=== PATIENT | female | born 1975 | race Caucasian/White ===

== ENCOUNTER → 2016-10-02 | Outpatient (CLI) | payer BC ==
[~2016-10-02] MED LIST: AQUAPHOR TOP; CHOL1TAB42 PO; CLC100X PO; LORA0.5T12 PO; METHPOW PO; NITROBID TOP; OXYC-57 PO; POLY335040 PO; SOFTSOL OPB; TYLOTC500 PO; [UNRECOGNIZED DRUG - CODE] OPB
[2016-10-02 10:01] LABS: ESTIMATED AVERAGE GLUCOSE 111 mg/dl; HA1C FLAG Normal (Normal)
== END | disposition home or self-care (01) ==
LOC: C.LAB1850 07:25
PROVIDERS: ATTEND Internal Medicine
DX: R73.09 Other abnormal glucose (principal)

== ENCOUNTER → 2016-10-11 | Outpatient (CLI) | payer BC ==
--- NOTE | 2016-10-12 13:16 | MAMMOGRAPHY REPORT ---
BILATERAL DIGITAL SCREENING MAMMOGRAM TOMOSYNTHESIS WITH CAD: 10/11/2016 TECHNIQUE: Breast tomosynthesis in addition to standard 2D mammography was performed. Current study was also evaluated with a Computer Aided Detection (CAD) system. COMPARISON: Comparison is made to exams dated: 08/16/2015 mammogram, 08/13/2014 mammogram - [facility], and 12/08/2008. BREAST COMPOSITION: The tissue of both breasts is heterogeneously dense, which may obscure small ma sses. FINDINGS: No suspicious masses, calcifications, or areas of architectural distortion are noted in e ither breast. There has been no significant interval change compared to prior exams. IMPRESSION: ACR BI-RADS CATEGORY 1: NEGATIVE There is no mammographic evidence of malignancy. A 1 year screening mammogram is recommended. The p atient will receive written notification of the results. Approximately 10% of breast cancers are not detected with mammography. A negative mammographic repor t should not delay biopsy if a clinically suggestive mass is present. Azul Estrada M.D. ah/:10/11/2016 16:06:57 Motor Vehicle Examiner: Rosa FRANK(R)(M), [facility] letter sent: Normal 1/2 BI-RADS Code: ACR BI-RADS Category 1: Negative
== END | disposition home or self-care (01) ==
LOC: C.MAMM 13:53
PROVIDERS: ATTEND Internal Medicine
DX: Z12.31 Encounter for screening mammogram for malignant neoplasm of breast (principal)

== ENCOUNTER → 2016-10-20 | Outpatient (CLI) | payer BC ==
[2016-10-20 09:26] LABS: BASO % 0.3 %; BASO ABS # 0.03 K/uL (0-0.2); COMPLETE YES; EOS % 2.8 %; HEMATOCRIT 40.4 % (37-47); IG% 0.3 %; LYMPH % 30.3 %; LYMPH ABS # 2.66 K/uL (1.2-3.4); MEAN CELL VOLUME 81.9 fL (80-100); MEAN CORPUSCULAR HEMOGLOBIN 26.6 pg (25-34); MEAN CORPUSCULAR HGB CONC 32.4 g/dl (32-36); MEAN PLATELET VOLUME 10.4 fL (7.4-10.4); NEUT % 58.3 %; PLATELET COUNT 319 K/uL (130-400); RED BLOOD COUNT 4.93 M/uL (4.2-5.4); WHITE BLOOD COUNT 8.78 K/uL (4.8-10.8)
[2016-10-20 09:45] LABS: URINE APPEARANCE CLEAR (CLEAR); URINE BILIRUBIN NEG (NEG); URINE COLOR YELLOW; URINE NITRITE NEG (NEG); URINE PH 5.5 (4.5-7.5); UROBILINOGEN NEG (NEG); ZZUR CULT IF INDIC CLEAN CATCH NO
[2016-10-20 09:46] LABS: MANUAL MICROSCOPIC REQUIRED? NO; REVIEW REQ? NO
[2016-10-20 09:53] LABS: ALT/SGPT 37 U/L (12-78); AST/SGOT 21 U/L (15-37); BLOOD UREA NITROGEN 11 mg/dl (7-18); BUN/CREATININE RATIO 14.1 (10-20); CALCIUM 8.9 mg/dl (8.5-10.1); CARBON DIOXIDE 29 mmol/L (21-32); CHLORIDE 105 mmol/L (98-107); CREATININE 0.81 mg/dl (0.60-1.20); GLUCOSE 104 mg/dl (70-99); POTASSIUM 4.2 mmol/L (3.5-5.1); SODIUM 140 mmol/L (136-145)
[2016-10-20 10:04] LABS: ALKALINE PHOSPHATASE 96 U/L (45-117); CHOLESTEROL 156 mg/dl (0-200); HDL CHOLESTEROL 39 mg/dl; LDL CHOLESTEROL CALCULATED 92 mg/dl; TRIGLYCERIDES 124 mg/dl (0-150); VERY LOW DENSITY LIPOPROT CALC 25 mg/dl
== END | disposition home or self-care (01) ==
LOC: C.LAB1850 07:04
PROVIDERS: ATTEND Internal Medicine
DX: E66.01 Morbid (severe) obesity due to excess calories (principal); R53.83 Other fatigue; Z13.6 Encounter for screening for cardiovascular disorders; R73.01 Impaired fasting glucose

== ENCOUNTER → 2016-12-11 | Outpatient (CLI) | payer BC | END | disposition home or self-care (01) | LOC: C.PAPS 08:54 | PROVIDERS: ATTEND Physician Assistant | DX: N92.0 Excessive and frequent menstruation with regular cycle (principal); Z01.419 Encounter for gynecological examination (general) (routine) without abnormal findings ==

== ENCOUNTER → 2016-12-22 | Outpatient (CLI) | payer BC | END | disposition home or self-care (01) | LOC: C.LAB1850 15:48 | PROVIDERS: ATTEND Internal Medicine | DX: E55.9 Vitamin D deficiency, unspecified (principal) ==

== ENCOUNTER → 2017-01-29 | Outpatient (CLI) | payer BC | END | disposition home or self-care (01) | LOC: C.PATHSPEC 10:43 | PROVIDERS: ATTEND Obstetrics & Gynecology | DX: N93.9 Abnormal uterine and vaginal bleeding, unspecified (principal) ==

== ENCOUNTER 2017-03-23 09:45 | Observation (INO) | payer BC ==
[2017-03-09 14:31] VITALS: BMI 46.0
--- NOTE | 2017-03-09 14:57 | PAT Medication Instructions ---
Service Date Mar 09, 2017. Current Home Medication List Cholecalciferol (Vitamin D), 1 TAB PO HS Docusate Sodium (Colace), 100 MG PO BID PRN for Constipation Lorazepam (Lorazepam), 0.5 MG PO DAILY PRN for Anxiety/Insomnia Polyethylene (Miralax Powder Packet), 17 GM PO PRN PRN for Constipation Soft Lens Products (Saline Sensitive Eyes), 1 DROP OPB Medication Instructions For Your Scheduled Surgery - Hold the following medications the morning of surgery: Polyethylene (Miralax Powder Packet), 17 GM PO PRN PRN for Constipation Docusate Sodium (Colace), 100 MG PO BID PRN for Constipation - Take the following medications the morning of surgery with a sip of water OTHERWISE NOTHING TO EAT OR DRINK AFTER MIDNIGHT: Soft Lens Products (Saline Sensitive Eyes), 1 DROP OPB Lorazepam (Lorazepam), 0.5 MG PO DAILY PRN for Anxiety/Insomnia - Take the following medications as scheduled the night before surgery: Cholecalciferol (Vitamin D), 1 TAB PO HS Polyethylene (Miralax Powder Packet), 17 GM PO PRN PRN for Constipation Docusate Sodium (Colace), 100 MG PO BID PRN for Constipation Soft Lens Products (Saline Sensitive Eyes), 1 DROP OPB Lorazepam (Lorazepam), 0.5 MG PO DAILY PRN for Anxiety/Insomnia If you have any questions please call us at [phone] or [phone] or [phone]
[2017-03-09 15:47] LABS: BASO % 0.2 %; BASO ABS # 0.02 K/uL (0-0.2); COMPLETE YES; EOS % 3.4 %; HEMATOCRIT 39.2 % (37-47); IG% 0.4 %; LYMPH % 27.7 %; LYMPH ABS # 2.82 K/uL (1.2-3.4); MEAN CELL VOLUME 82.2 fL (80-100); MEAN CORPUSCULAR HEMOGLOBIN 26.8 pg (25-34); MEAN CORPUSCULAR HGB CONC 32.7 g/dl (32-36); MONO % 9.6 %; NEUT % 58.7 %; PLATELET COUNT 295 K/uL (130-400); RED BLOOD COUNT 4.77 M/uL (4.2-5.4); WHITE BLOOD COUNT 10.17 K/uL (4.8-10.8)
[2017-03-09 15:50] LABS: BUN/CREATININE RATIO 18.1 (10-20); CALCIUM 9.5 mg/dl (8.5-10.1); CREATININE 0.7 mg/dl (0.60-1.20); POTASSIUM 3.8 mmol/L (3.5-5.1)
[~2017-03-23] VITALS: Ht 167.6 cm; Wt 129.7 kg
[2017-03-23] VITALS (8 sets, daily range): BP systolic 104–118; BP diastolic 58–78; PULSE 63–83; TEMP 36.4–36.8; O2SAT 95–100; Ht 167.6 cm; Wt 129.7 kg
[~2017-03-23 09:45] MED LIST changes: -AQUAPHOR TOP; +CEFAZOLIN 3000 MG/65 ML D5W 50 ML IV SCH; +DEXAMETHASONE SOD INJ 4 MG/ML VIAL ONE; +FENTANYL CITRATE INJ 50 MCG/1 ML 2 ML VIAL ONE; +GLYCOPYRROLATE INJ 0.2 MG/ML VIAL ONE; +LACTATED RINGER'S 1000ML 1,000 ML IV SCH; +LIDOCAINE HCL 2% 2 ML VIAL (20MG/ML) ONE; -METHPOW PO; +MIDAZOLAM HCL 1 MG/ML 2ML VIAL ONE; +NEOSTIGMINE METHYLSULFATE 5 MG/5 ML SYR ONE; -NITROBID TOP; +ONDANSETRON INJ 2 MG/ML 2 ML VIAL ONE; -OXYC-57 PO; +PROPOFOL IV EMULSION 10 MG/ML 20 ML VIAL IV ONE; +ROCURONIUM BROMIDE 10 MG/ML 5 ML VIAL ONE; -TYLOTC500 PO; -[UNRECOGNIZED DRUG - CODE] OPB
[2017-03-23] MEDS ORDERED: METHYLENE BLUE 0.5% 10 ML VIAL ONE (09:51)
[2017-03-23] MEDS ORDERED: BUPIVACAINE 0.5 % 5 MG/1 ML MPF 30ML VIAL ONE (09:51)
--- NOTE | 2017-03-23 10:13 | History & Physical Bridge Note ---
H&P Re-Evaluation Bridge Note: I have examined the patient, reviewed the History & Physical and in the interval since the performance of the History & Physical I have noted the following changes of clinical significance: No changes noted
[2017-03-23] MEDS ORDERED: ONDANSETRON INJ 2 MG/ML 2 ML VIAL IV PRN ×2 (10:30→13:00)
[2017-03-23] MEDS ORDERED: PHENYLEPHRINE 100MCG/ML 5ML SYR IV PRN (10:30)
[2017-03-23] MEDS ORDERED: EpHEDrine SULFATE INJ 50 MG/ML AMP IV PRN (10:30)
[2017-03-23] MEDS ORDERED: ATROPINE SULFATE 0.1 MG/ML 5ML SYR IV PRN (10:30)
[2017-03-23] MEDS ORDERED: HYDROmorphone INJ 2 MG/ML SYR/VIAL ONE (11:33)
[2017-03-23] MEDS ORDERED: EpHEDrine SULFATE 50MG/5ML SYR ONE (11:36)
[2017-03-23] MEDS ORDERED: ROCURONIUM BROMIDE 10 MG/ML 5 ML VIAL IV ONE (12:05)
[2017-03-23] MEDS ORDERED: OXYC-57 PO (12:58)
--- NOTE | 2017-03-23 12:59 | Discharge Instructions ---
Discharge Instructions Date of Service Mar 23, 2017. Admission Reason for Admission: Abnormal Uterine Bleeding Discharge Discharge Diagnosis / Problem: after surgery Discharge Goals Goal(s): Routine recovery after surgery Activity Recommendations Activity Limitations: as noted below . Instructions / Follow-Up Instructions / Follow-Up POST OPERATIVE: BOWEL FUNCTION/MEDICATIONS: 1. Constipation pain and discomfort are the most common complaints 5-7 days after surgery. Points 2-6 address the things that can help. 2. Chewing gum can help stimulate the gut and help improve digestion and motility. 3. Milk of Magnesia 1-2 times per day until return of bowel function. 4. Colace is a stool softener that helps. Taking this 2-3 times per day until bowel function returns to normal is highly recommended. 5. Dulcolax is a laxative that may be used if several days have passed without a bowel movement. Alternatively Miralax may be used daily instead. 6. Drink plenty of fluids as this will also reduce constipation. 7. Narcotic pain medications will be prescribed by your physician. They are safe to use and we encourage you to use them. If you are not allergic, ibuprofen will also be prescribed. Many patients will be able to transition off of the narcotic medications to ibuprofen by postoperative day 3. ACTIVITY RECOMMENDATIONS: 1. Get plenty of rest and listen to your body. If you are tired, take a nap. 2. You may shower, but do not take a tub bath until you see your doctor at the 2 week post operative visit. 3. Absolutely NO intercourse and nothing in the vagina until you are examined by your doctor at the 8 week visit. At that visit it will be determined when such activities can be resumed. This can range from 6-12 weeks after your surgery depending on healing time. 4. The main physical activity in the first week should be walking. By the second week you can slowly increase activity. There are no limits on walking up and down stairs. 5. Do not lift more than 5-10 lbs for 4 weeks. Remember the "one-handed rule", i.e. if you can lift something with only one hand it's likely okay. 6. Minimize moving consultant like vacuuming and exercising for 4 weeks. "Overdoing it" can lead to incisions not healing, pain and vaginal bleeding , so again, listen to your body. 7. Driving can be resumed when you feel able. Do not drive within 24 hours of taking a narcotic medication. EXPECTATIONS: 1. Vaginal spotting, bleeding and discharge are common after surgery. There may even be an odor to the discharge which is often related to sutures used in the vagina. If you experience heavy vaginal bleeding, call the office number day or night [phone]. 2. Bladder discomfort is common after surgery from the catheter. This usually resolves in 1-2 weeks. 3. By the end of the 3rd or 4th week you should be feeling much better. It may take up to 6 weeks for your energy levels to return to normal. 4. Narcotic medications have side effects such as: dizziness, headache, nausea and/or vomiting. If you suspect your pain medication is causing problems, call our office and we may be able to prescribe an alternate medication. 5. The skin incisions are often covered with a liquid bandage. This will gradually peel off over time. CALL THE OFFICE IF YOU HAVE ANY OF THE FOLLOWIN. Temperature of 101 degrees or higher. 2. Severe abdominal or pelvic pain not relieved by pain medication. 3. Persistent nausea or vomiting. 4. Increased pain with urination or difficulty urinating. 5. Bright red bleeding that soaks more than 1 pad per hour. CONTACT PHONE NUMBERS: Main Office: [phone] Surgical Nurse: [phone] extension [phone] FOLLOW-UP: Post-Operative Appointments: * Individual instructions will have been given about the timing of your first examination, but this is usually at the end of the second week home. * You will need to call the office at soon after discharge to make the appointment for your post-op check-up if it has not already been scheduled. * Additional information regarding activity, sexual intercourse and when to return to work will be given at this appointment. WE WISH YOU A SPEEDY RECOVERY! Current Hospital Diet Patient's current hospital diet: Discharge Diet Recommended Diet: Regular Diet Procedures Procedures Performed: Total Laparoscopic Hysterectomy Bilateral Salpingectomies Robot Assist; Cystoscopy Pending Studies Studies pending at discharge: yes List of pending studies: pathology Medical Emergencies . Who to Call and When: Medical Emergencies: If at any time you feel your situation is an emergency, please call 911 immediately. . Non-Emergent Contact Non-Emergency issues call your: Digital Intern . . "Provider Documentation" section prepared by Lisa Sigala. . VTE Core Measure Inpt VTE Proph given/why not?: SCD's [place] Drug Monitoring Program Search Results: patient reviewed within database, no issues identified
[2017-03-23] MEDS ORDERED: SIMETHICONE 80 MG CHEW PO PRN (13:00)
[2017-03-23] MEDS ORDERED: OXYCODONE/ACETAMINOPHEN 5-325 TAB PO PRN ×2 (13:00)
[2017-03-23] MEDS ORDERED: ACETAMINOPHEN 325 MG TAB PO PRN (13:00)
[2017-03-23] MEDS ORDERED: IBUPROFEN 600 MG TAB PO PRN (13:00)
[2017-03-23] MEDS ORDERED: KETOROLAC TROMETHAMINE 30 MG/ML VIAL IV. PRN (13:00)
--- NOTE | 2017-03-23 13:10 | [facility] Post Operative Brief Note ---
Immediate Operative Summary Operative Date Mar 23, 2017. Pre-Operative Diagnosis Abnormal Uterine Bleeding, Symptomatic Fibroid uterus. Post-Operative Diagnosis Same as preop Procedure(s) Performed Total Laparoscopic Hysterectomy Bilateral Salpingectomies Robot Assist; Cystoscopy Surgeon Dr. Larissa Sigala Hotel Server Surgeon(s) Dr. Robert Vincent Estimated Blood Loss 25 Findings uterus mobile, large posterior fibroid about 4cm. nl ovaries bilaterally, nl fallopian tubes. nl liver edge. Fluids (cc crystalloids) 1400 Specimens A. Uterus, Cervix, Bilateral Fallopian Tubes Drains oneill Anesthesia general Complication(s) None Disposition Recovery Room / PACU
[2017-03-23] MEDS ORDERED: KETOROLAC TROMETHAMINE 30 MG/ML VIAL ONE (13:16)
[2017-03-23] MEDS: HYDROmorphone INJ 2 MG/ML SYR/VIAL IV PRN ×2 (13:17→13:29)
--- NOTE | 2017-03-23 13:35 | OPERATIVE REPORT ---
DATE OF OPERATION: 03/23/2017 PREOPERATIVE DIAGNOSES: 1. Abnormal uterine bleeding. 2. Symptomatic fibroid uterus. POSTOPERATIVE DIAGNOSES: Same. PROCEDURES: 1. Total laparoscopic hysterectomy. 2. Bilateral salpingectomies. 3. Robotic assistance. 4. Cystoscopy. SURGEON: Dr. Lisa Sigala. ORACLE EBS CONSULTANT: Mirella Vincent MD ANESTHESIA: General. IV FLUIDS: 1400 mL. ESTIMATED BLOOD LOSS: 25 mL. URINE OUTPUT: 600 mL. FINDINGS: Uterus with a posterior fundal fibroid, approximately 4 cm in size. Overall, the uterus is mobile. The ovaries are normal bilaterally. Fallopian tubes were normal bilaterally. There was normal liver edge and gallbladder seen. Cystoscopy findings include normal bladder filling and no evidence of sutures and normal ureteral jets. INDICATIONS: A 41-year-old who has completed her childbearing with heavy periods, but also symptoms of pressure in the pelvis due to known 12-week size uterus with a large posterior fibroid. She desired definitive surgical therapy with removal of the uterus and distal fallopian tubes. She was aware of her other treatment options. Please see the history and physical for more details of the other treatment options discussed. DESCRIPTION OF PROCEDURE: The patient was taken to the operating room and identified. After adequate general anesthesia was obtained, she was placed in dorsal lithotomy position and prepped and draped in the usual sterile fashion. Attention was turned to the patient's vagina, where a Osborne catheter was placed under sterile conditions. A weighted speculum and anterior retractor were used to visualize the cervix, which was grasped on its anterior lip with a tenaculum. The cervix was sequentially dilated using Hegar dilators to 23. Uterus sounded to approximately 11 cm. The VCare uterine manipulator was gently placed through the cervical os into the uterine cavity and a balloon was inflated. A suture placed at 3 o'clock as a single interrupted suture of 0 Vicryl was then connected to the VCare cup and tied down. The stabilizing device was placed. All the instruments for retraction were removed. Attention was then turned to the patient's abdomen. A supraumbilical skin incision was made with a scalpel. The Veress needle was placed intraperitoneally with an opening pressure of 6 mmHg. A CO2 pneumoperitoneum was created. The optical trocar 12 mm was then placed under direct visualization into the peritoneal cavity. The patient was placed in steep Trendelenburg. A CO2 pneumoperitoneum was maintained. The pelvis was inspected with the findings as noted above. Two da Nikita trocar sites were created left and right of the midline by first creating skin incisions and then placing under direct visualization, da Nikita trocars. The 10-mm scope was then removed. The robot was brought to the patient's bedside. The appropriate instrument arms were connected to the appropriate trocars. The monopolar julius and a fenestrated bipolar were introduced into the abdomen under direct visualization after the camera had been placed. The power shear operator then went to the console. The ureters were seen coursing well below the planned operative mchugh. Then, the right adnexa was identified. The fallopian tube was dissected away from the broad ligament attachments on the right side. The round ligament was cauterized and transected. The remaining uterine ovarian ligament tissue was cauterized and transected and the broad ligament leaves were opened up anteriorly and posteriorly. The anterior reflection of the bladder was developed. The bladder was pushed well away from the planned operative sites. The uterine arteries were skeletonized on the right side and they were coagulated. At this point, attention was turned to the left fallopian tube, which identified and carved away from the broad ligament attachments in a similar fashion. The broad ligament was also coagulated and transected as well as the uterine ovarian ligament attachments. The broad ligament leaves were opened up anteriorly and posteriorly on the left side and anteriorly, they met across the midline to the bladder flap that had already been begun. The bladder was pushed well away from the planned operative field. The uterine artery pedicle was skeletonized. The uterine arteries were cauterized. They were then transected. The cardinal ligament attachments were further cauterized and transected. Attention was returned to the right uterine artery pedicles, which were then re-cauterized and transected as well as the cardinal ligament attachments. This completely mobilized the planned incision site of colpotomy. The colpotomy was begun and the cervix was carved away from the upper vagina circumferentially using the monopolar julius. The specimen was brought out through the vagina. Sponge was then placed in the vagina to allow for maintenance of the pneumoperitoneum. A 2-0 V-Loc 90 suture was passed vaginally and the #1 instrument arm was changed to a large needle catshovel driver. The cuff was then closed in a running fashion using the suture material in the usual fashion and back stitches were placed. The instrument arm #1 was then undocked after the large needle catshovel driver had been removed. Through this trocar site, the scissors and then the needle catshovel driver were brought in to remove the suture material from the abdomen. The suction software applications architect was then brought through this trocar site to irrigate the pelvis and no active bleeding sites had been noted. A cystoscopy was then performed in the usual fashion and the findings were as noted above. A new Osborne catheter was then placed to allow for drainage of the bladder. At this point, the procedure was terminated. The attention was turned to the abdomen, where the supraumbilical skin incision site had 0 Vicryl interrupted stitch placed to reapproximate the subcutaneous tissues followed by all incision sites being closed in a subcuticular fashion using 4-0 Vicryl. The incisions were injected with Marcaine and dressed with Dermabond. At this point, the patient was returned to the supine position, awoken from anesthesia, and transferred to the recovery room in stable condition. All sponge, lap and needle counts were correct x2. I attest to the content of the Intraoperative Record and any orders documented therein. Any exceptions are noted below. SUSANNE
[2017-03-23] MEDS ORDERED: IV FLUIDS COMPLETED PRN (13:45)
[2017-03-23] MEDS ORDERED: LACTATED RINGER'S 1000ML 1,000 ML IV SCH (14:30)
--- NOTE | 2017-03-23 15:04 | Anesthesiology Progress Note ---
Anesthesia Post Op Note Date & Time Mar 23, 2017 at 15:04 Vital Signs Pain Intensity: 1.0 Vital Signs Past 12 Hours Date Time Temp Pulse Resp B/P (MAP) Pulse Ox O2 Delivery O2 Flow Rate FiO2 03/23/17 14:40 73 20 109/67 (81) 96 Room Air 03/23/17 14:10 98 Nasal Cannula 2.0 03/23/17 14:10 36.5 70 18 104/65 (78) 98 Nasal Cannula 2.0 03/23/17 13:50 53 14 115/65 97 Nasal Cannula 2 03/23/17 13:40 36.6 76 16 101/67 99 Nasal Cannula 2 03/23/17 13:30 48 12 103/77 99 Nasal Cannula 3 03/23/17 13:20 50 13 107/60 100 Oxymask 4 03/23/17 13:10 61 15 113/67 96 Oxymask 10 03/23/17 13:02 59 16 118/72 100 Oxymask 10 03/23/17 12:52 36.7 60 16 118/65 100 Oxymask 10 03/23/17 10:14 36.8 75 20 118/78 97 Room Air Notes Mental Status: alert / awake / arousable, participated in evaluation Pt Amnestic to Procedure: Yes Nausea / Vomiting: adequately controlled Pain: adequately controlled Airway Patency, RR, SpO2: stable & adequate BP & HR: stable & adequate Hydration State: stable & adequate Anesthetic Complications: no major complications apparent
--- NOTE | 2017-03-28 11:24 | Discharge Summary ---
Discharge Summary Date of Service Mar 23, 2017. Date of discharge 03/23/2017 Discharge Summary Admission diagnoses: #1 abnormal uterine bleeding #2 symptomatic fibroid uterus Discharge diagnoses: Same Procedures: #1 total laparoscopic hysterectomy #2 bilateral salpingectomies #3 robotic assistance #4 cystoscopy Brief history and Hospital course: 41-year-old 2 para 2 who has completed her childbearing with symptomatic fibroid uterus and abnormal uterine bleeding who desired definitive surgical management. More details in admission history and physical. She underwent the above-stated procedures without incident. Her estimated blood loss was 25 cc. Later that same day of surgery she was tolerating a regular diet, voiding spontaneously without difficulty, ambulating without difficulty and had good pain control with oral medications. She was stable for discharge to home. She is given appropriate instructions as well as prescriptions for pain medicine. She was to follow up in 2 weeks in the office.
== END 2017-03-23 18:45 | disposition home or self-care (01) ==
LOC: C.ACU 09:45 → C.MS4N 09:55 → ENRESERV 13:55
PROVIDERS: ADMIT Obstetrics & Gynecology; ATTEND Obstetrics & Gynecology
DX: D25.9 Leiomyoma of uterus, unspecified (principal); N93.8 Other specified abnormal uterine and vaginal bleeding; F41.9 Anxiety disorder, unspecified; R53.83 Other fatigue; R73.01 Impaired fasting glucose; E66.01 Morbid (severe) obesity due to excess calories; Z68.42 Body mass index [BMI] 45.0-49.9, adult; E55.9 Vitamin D deficiency, unspecified; Z79.899 Other long term (current) drug therapy; G47.33 Obstructive sleep apnea (adult) (pediatric); Z99.89 Dependence on other enabling machines and devices; Z80.0 Family history of malignant neoplasm of digestive organs; Z83.79 Family history of other diseases of the digestive system
CPT/HCPCS: 58570; S2900

== ENCOUNTER → 2017-04-12 | Outpatient (CLI) | payer BC ==
[~2017-04-12] MED LIST changes: -CEFAZOLIN 3000 MG/65 ML D5W 50 ML IV SCH; -DEXAMETHASONE SOD INJ 4 MG/ML VIAL ONE; -FENTANYL CITRATE INJ 50 MCG/1 ML 2 ML VIAL ONE; -GLYCOPYRROLATE INJ 0.2 MG/ML VIAL ONE; -LACTATED RINGER'S 1000ML 1,000 ML IV SCH; -LIDOCAINE HCL 2% 2 ML VIAL (20MG/ML) ONE; -MIDAZOLAM HCL 1 MG/ML 2ML VIAL ONE; -NEOSTIGMINE METHYLSULFATE 5 MG/5 ML SYR ONE; -ONDANSETRON INJ 2 MG/ML 2 ML VIAL ONE; +OPTIRAY 320 IV PRN; +OXYC-57 PO; -PROPOFOL IV EMULSION 10 MG/ML 20 ML VIAL IV ONE; -ROCURONIUM BROMIDE 10 MG/ML 5 ML VIAL ONE
--- NOTE | 2017-04-12 16:09 | DIAGNOSTIC IMAGING REPORT ---
CT ANGIOGRAPHY OF THE CHEST, PULMONARY EMBOLUS PROTOCOL CLINICAL HISTORY: Atypical left-sided chest pain. Recent surgery. COMPARISON STUDY: No previous studies for comparison. TECHNIQUE: Following IV administration of 93 mL of Optiray-320, helical axial images of the chest were obtained utilizing the pulmonary embolus protocol. Maximal intensity projections and sagittal and coronal reformats were viewed on an independent 3D workstation. IV contrast was administered without complication. A dose lowering technique was utilized adhering to the principles of ALARA. CT DOSE: 494.66 mGycm FINDINGS: No pulmonary emboli are identified. There is no evidence of thoracic aortic dissection. The heart is mildly enlarged. No pericardial effusion. Central airways are patent. There is no consolidation to suggest pneumonia. There are trace bilateral pleural effusions. There is no pneumothorax. Bony thorax and upper abdomen are unremarkable with the exception of mild splenomegaly which is unchanged since exam of January 07, 2013. There may be fatty infiltration of the liver. IMPRESSION: 1. No pulmonary emboli identified. 2. Trace bilateral pleural effusions. 3. Mild cardiomegaly. Electronically signed by: Klaus Stinson M.D. 04/12/2017 4:08 PM Dictated Date/Time: 04/12/2017 3:55 PM
== END | disposition home or self-care (01) ==
LOC: C.CTS 15:33
PROVIDERS: ATTEND Internal Medicine
DX: R07.89 Other chest pain (principal)

== ENCOUNTER → 2017-05-15 | Outpatient (CLI) | payer BC ==
[~2017-05-15] MED LIST changes: -OPTIRAY 320 IV PRN
[2017-05-15 14:57] LABS: ESTIMATED AVERAGE GLUCOSE 117 mg/dl; HA1C FLAG Normal (Normal)
== END | disposition home or self-care (01) ==
LOC: C.LAB1850 11:53
PROVIDERS: ATTEND Internal Medicine
DX: R73.01 Impaired fasting glucose (principal)

== ENCOUNTER → 2017-10-29 | Outpatient (CLI) | payer BC ==
[~2017-10-29] MED LIST changes: -OXYC-57 PO
--- NOTE | 2017-10-29 11:00 | DIAGNOSTIC IMAGING REPORT ---
ULTRASOUND SOFT TISSUES LEFT UPPER BACK CLINICAL HISTORY: Soft tissue mass. COMPARISON STUDY: Chest CT dated 04/12/2017. FINDINGS: Real-time, grayscale, and color flow sonography of the soft tissues of the left upper back is performed at the indicated site of interest. There is a well-circumscribed homogeneously hypoechoic soft tissue lesion at this site measuring 3.1 x 1.2 x 4.8 cm. No internal vascularity is identified on color imaging. This largely blends into the surrounding subcutaneous fat and is typical in appearance for a small lipoma. IMPRESSION: There is a 4.8 cm subcutaneous soft tissue lesion identified as detailed above. Although pathologically indeterminant, the appearance is typical for a lipoma. Clinical correlation will be required. Dictated: 10/29/2017 9:58 AM Transcribed: 10/29/2017 10:59 AM Ellen Electronically signed by: Vinny Leyva M.D. 10/29/2017 11:08 AM Dictated Date/Time: 10/29/2017 9:58 AM
== END | disposition home or self-care (01) ==
LOC: C.ULTRBC 09:21
PROVIDERS: ATTEND Nurse Practitioner
DX: M79.9 Soft tissue disorder, unspecified (principal)

== ENCOUNTER → 2017-11-15 | Outpatient (CLI) | payer BC ==
--- NOTE | 2017-11-16 07:44 | MAMMOGRAPHY REPORT ---
BILATERAL DIGITAL SCREENING MAMMOGRAM TOMOSYNTHESIS WITH CAD: 11/15/2017 CLINICAL HISTORY: Routine screening. Patient has no complaints. TECHNIQUE: Breast tomosynthesis in addition to standard 2D mammography was performed. Current study was also evaluated with a Computer Aided Detection (CAD) system. COMPARISON: Comparison is made to exams dated: 10/11/2016 mammogram, 08/16/2015 mammogram, 08/13/2014 [facility], and 12/08/2008. BREAST COMPOSITION: The tissue of both breasts is heterogeneously dense, which may obscure small mas ses. FINDINGS: There are possible faint grouped calcifications in the right upper outer quadrant, for wh ich spot magnification views are recommended for further evaluation. The remainder of both breasts de monstrate no suspicious masses, calcifications, or areas of architectural distortion. IMPRESSION: ACR BI-RADS CATEGORY 0: INCOMPLETE EVALUATION: NEED ADDITIONAL IMAGING EVALUATION Right upper outer quadrant calcifications, for which additional imaging evaluation is recommended. T he patient will be called to schedule an appointment. Approximately 10% of breast cancers are not detected with mammography. A negative mammographic report should not delay biopsy if a clinically suggestive mass is present. Azul Estrada M.D. ah/:11/15/2017 17:19:20 Steel Erector: Kim FRANK(Betito)(M), [facility] letter sent: Addl Imaging 0 BI-RADS Code: ACR BI-RADS Category 0: Incomplete Evaluation: Need Additional Imaging Evaluation
== END | disposition home or self-care (01) ==
LOC: C.MAMM 13:08
PROVIDERS: ATTEND Obstetrics & Gynecology
DX: Z12.31 Encounter for screening mammogram for malignant neoplasm of breast (principal); R92.0 Mammographic microcalcification found on diagnostic imaging of breast

== ENCOUNTER → 2017-11-23 | Outpatient (CLI) | payer BC ==
--- NOTE | 2017-11-26 08:09 | MAMMOGRAPHY REPORT ---
UNILATERAL RIGHT DIGITAL DIAGNOSTIC MAMMOGRAM: 11/23/2017 CLINICAL HISTORY: Callback from screening mammogram for right breast calcifications. History of enrike ady. Family history of breast cancer including her grandmother. TECHNIQUE: Spot magnification right cc and ML views were obtained. COMPARISON: Comparison is made to exams dated: 11/15/2017 mammogram, 10/11/2016 mammogram, 08/16/2015 [facility], 08/13/2014 mammogram - [facility], and 12/08/2008. BREAST COMPOSITION: The tissue of the right breast is heterogeneously dense, which may obscure small masses. FINDINGS: Spot magnification views of the right breast demonstrate a 14 mm group of calcifications wi thin the right upper outer quadrant. The calcifications are punctate and amorphous, and do not clear ly layer on the lateral view to suggest milk of calcium. The calcifications may represent fibrocysti c changes although are indeterminate and stereotactic biopsy is recommended for further evaluation. Other scattered punctate benign-appearing calcifications are seen within the right upper outer quadra nt. IMPRESSION: ACR BI-RADS CATEGORY 4: SUSPICIOUS Grouped calcifications within the right upper outer quadrant are indeterminate and stereotactic biops y is recommended for further evaluation. A phone call was made to the physician's office to confirm faxed results were received. The patient has been verbally notified of the results. She tentatively scheduled the procedure before [facility]. Approximately 10% of breast cancers are not detected with mammography. A negative mammographic report should not delay biopsy if a clinically suggestive mass is present. Azul Estrada M.D. ah/:11/23/2017 14:45:44 [employer] Senior Sergeant: Yaneth FRANK(Betito)(Prabha), [facility] letter sent: Abnormal 4/5 BI-RADS Code: ACR BI-RADS Category 4: Suspicious
== END | disposition home or self-care (01) ==
LOC: C.MAMM 13:55
PROVIDERS: ATTEND Obstetrics & Gynecology
DX: R92.1 Mammographic calcification found on diagnostic imaging of breast (principal)

== ENCOUNTER → 2017-11-28 | Outpatient (CLI) | payer BC ==
--- NOTE | 2017-11-28 14:17 | Discharge Instructions ---
Discharge Instructions Procedure Procedure Date: Nov 28, 2017. Reason for visit: Right Calcs. Discharge Discharge Date: Nov 28, 2017. Discharge Diagnosis: status post breast biopsy Instructions Activity Recommendations: Additional Limitations (see below) Return to School/Work: no limitations Recommended Home Diet: No Limitations Provider Instructions: ACTIVITY RECOMMENDATIONS: * No lifting, pushing, pulling or exercising the affected side for three days. RETURN TO SCHOOL/WORK: * You may return to work/school after the procedure, but do not perform any strenuous activities for 24 to 48 hours. MEDICATIONS: * Tylenol (two 325 mg) every four to six hours if needed for mild pain (if not allergic to Tylenol). DIET: * Resume previous diet. SPECIAL CARE INSTRUCTIONS: * Keep biopsy site dry for 24 hours. May shower after 24 hours, but do not soak (bathe) incision. * May remove Tegaderm (plastic patch) tomorrow AFTER showering. * Leave the steri-strips on for one week. Allow the steri-strips to fall off by themselves. If not off after one week, you may remove them. You may place a Bandaid crosswise over the strips, if desired. * Apply ice 10 minutes on and 10 minutes off as needed. * Wear a bra at bedtime to sleep more comfortably for 2-3 days. * Your referring physician should have the results after approximately 5 to 7 business days. * Call for unusual bleeding, fever, drainage, etc or if you have any questions call during normal business hours or after hours call Dr Estrada, [phone]. FOLLOW UP VISIT: Follow-up with Referring Physician as scheduled. Allergies Coded Allergies: No Known Allergies (Verified , 03/09/17) Ina Garcia Recommendations: Call your doctor if: * Temperature above 101 degrees * Pain not relieved by pain medicine ordered * There is increased drainage or redness from any incision * You have any unanswered questions or concerns. Your Doctors Instructions noted above were prepared by provider Azul Estrada. Patient Signature Section: Patient Instructions Signature Page Cele Shah Patient (or Guardian) Signature/Date: I have read and understand the instructions given to me by my caregivers. Caregiver/RN/Doctor Signature/Date: The above-named patient and/or guardian has received patient instructions on this date. + Original Patient Signature Page (only) stays with chart. Please make copy for patient.
--- NOTE | 2017-11-28 15:29 | MAMMOGRAPHY REPORT ---
STEREOTACTIC GUIDED BIOPSY RIGHT BREAST: 11/28/2017 CLINICAL HISTORY: Indeterminate calcifications in the right upper outer quadrant. PATIENT CONSENT: The procedure, risks, benefits, and alternatives of stereotactic biopsy with clip pl acement were discussed with the patient, and verbal and written consent was obtained. A timeout was performed immediately prior to the procedure. PROCEDURE DESCRIPTION: With stereotactic guidance, aseptic technique, and lidocaine as a local anesth etic (1% lidocaine to anesthetize the skin and 1% lidocaine with epinephrine to anesthetize the deepe r tissues), the calcifications of concern in the right upper outer quadrant were sampled multiple royal es with a 9-gauge vacuum-assisted biopsy needle ([employer]). The path of approach was craniocaudal . The specimen radiograph demonstrates calcifications to be present in the samples. A metallic marke r clip was placed at the biopsy site. This was confirmed on postprocedure mammograms. Direct pressu re was applied at the biopsy site and hemostasis was readily achieved. The patient tolerated the pro cedure without complication. She was given wound care instructions. COMPARISON: Comparison is made to exams dated: 11/23/2017 mammogram, 11/15/2017 mammogram, 10/11/2016 ma mmogram, 08/16/2015 mammogram, 08/13/2014 mammogram - [facility], and 12/08/2008. IMPRESSION: STEREOTACTIC GUIDED BIOPSY Stereotactic biopsy of indeterminate calcifications in the right upper outer quadrant, with clip plac ement. The patient will receive pathology results from her referring provider. Azul Estrada M.D. /:11/28/2017 14:17:50 Receiving Teller: Alejandra RUIZ)(Prabha), [facility]
--- NOTE | 2017-11-28 15:32 | MAMMOGRAPHY REPORT ---
UNILATERAL RIGHT DIGITAL DIAGNOSTIC MAMMOGRAM: 11/28/2017 CLINICAL HISTORY: Status post right breast stereotactic biopsy. TECHNIQUE: Postprocedural right CC and ML views were obtained. COMPARISON: Comparison is made to exams dated: 11/23/2017 mammogram, 11/15/2017 mammogram, 10/11/2016 ma mmogram, 08/16/2015 mammogram, 08/13/2014 mammogram - [facility] [address], and 12/08/2008. BREAST COMPOSITION: The tissue of the right breast is heterogeneously dense, which may obscure small masses. FINDINGS: A new biopsy marker clip is seen at the site of the biopsied calcifications in the right up per outer quadrant. No significant postbiopsy hematoma is seen. IMPRESSION: POST PROCEDURE IMAGING FOR MARKER PLACEMENT New biopsy marker clip status post right breast biopsy. Pathology results are pending. Approximately 10% of breast cancers are not detected with mammography. A negative mammographic report should not delay biopsy if a clinically suggestive mass is present. Azul Estrada M.D. ah/:11/28/2017 14:32:11 Straw Hat Brim Cutter Operator: Alejandra FRANK(Betito)(Prabha), [facility] [address] BI-RADS Code: Post Procedure Imaging For Marker Placement
== END | disposition home or self-care (01) ==
LOC: C.MAMM 13:27
PROVIDERS: ATTEND Obstetrics & Gynecology
DX: R92.0 Mammographic microcalcification found on diagnostic imaging of breast (principal); N60.21 Fibroadenosis of right breast